=== PATIENT | male | born 1990 | race African-American/Black ===

== ENCOUNTER 2020-01-28 15:00 | Outpatient (CLI) | payer SELFPAY | END 2020-01-28 15:01 | disposition home or self-care (01) | LOC: COV 15:00 | PROVIDERS: ATTEND Family Medicine | DX: J02.9 Acute pharyngitis, unspecified (principal); R09.81 Nasal congestion; Z20.828 Contact with and (suspected) exposure to other viral communicable diseases ==

== ENCOUNTER 2020-05-24 17:50 | Emergency (ER) | payer SELFPAY ==
[2020-05-24] MEDS ORDERED: FAMOTIDINE 20 MG TABLET PO STA (18:09)
[2020-05-24] MEDS ORDERED: diphenhydrAMINE INJ 50 MG/ML VIAL IM STA (18:09)
--- NOTE | 2020-05-24 18:12 | ED Physician Documentation ---
History of Present Illness - Stated complaint Stated Complaint: ALLERGIC REACTION - Chief complaint Chief Complaint: Allergic Rx - Additonal information Additional information: 29-year-old male presents emergency department for evaluation of an allergic reaction. Approximately 90 minutes prior to arrival he began to notice itchiness in his eyes followed by bilateral periorbital eye swelling. He then noticed that his lower lip was beginning to swell. Since then he is developed generalized urticarial rash on his arms and abdomen. He endorses some mild shortness of breath. No chest pain. No difficulty with phonation or swallow. He has no previous history of allergic reactions or allergies with the exception of cats. He has never had similar in the past. Denies any new foods products detergents. He has not taken any medication for this allergic reaction. Review of Systems Constitutional: denies: Fever, Chills Eyes: reports: Reviewed and negative Ears: reports: Reviewed and negative Nose: reports: Reviewed and negative Throat: reports: Dental pain / toothache Cardiac: reports: Chest pain / pressure Respiratory: reports: Dyspnea. denies: Cough, Hemoptysis, Wheezing : reports: Dysuria Skin: reports: Rash PD PAST MEDICAL HISTORY - Past Surgical History Past Surgical History: No - Present Medications Home Medications: Ambulatory Orders Medication Instructions Recorded Confirmed EPINEPHrine [Epinephrine] 0.3 mg IJ ONCE PRN #1 syr 05/24/20 Famotidine [Pepcid] 20 mg PO BID #60 tablet 05/24/20 diphenhydrAMINE [Benadryl] 25 mg PO BID #14 05/24/20 - Allergies Allergies/Adverse Reactions: Allergies Allergy/AdvReac Type Severity Reaction Status Date / Time No Known Drug Allergies Allergy Verified 05/24/20 17:54 - Social History Does the pt smoke?: Yes Smoking Status: Current every day smoker Does the pt drink ETOH?: Yes Does the pt have substance abuse?: Yes PD ED PE EXPANDED - General General: Alert, No acute distress - HEENT HEENT: PERRL, Moist mucous membranes (Mild lower lip swelling. No swelling of the tongue floor of mouth.), Pharynx normal, Other (Mild periorbital eye swelling. No discharge.) - Neck Neck: Supple w/out meningeal sx, Other (Normal swallow normal phonation). No: Adenopathy - Cardiac Cardiac: Regular Rate, Regular Rhythm, Radial strong equal, Pedal strong equal, Cap refill < 2 sec. No: Murmur Present - Respiratory Respiratory: Clear to ausultation altagracia. No: Distress, Labored, Wheezing - Abdomen Abdomen: Normal Bowel sounds. No: Tender to palpation - Back Back: Normal exam, Soft tissue tenderness - Extremities Extremities: Normal. No: Deformity, Tenderness - Neuro Neuro: Alert and Oriented X 3, CNII-XII intact, Cerebellar nl, Normal gait, Normal finger nose, Normal speech - GCS Eye Opening: Spontaneous Motor: Obeys Commands Verbal: Oriented Total: 15 Results - Vitals Vitals: Vital Signs - 24 hr 05/24/20 05/24/20 05/24/20 17:54 18:09 19:05 Temperature 37 C Heart Rate 91 79 66 Respiratory 18 16 16 Rate Blood Pressure 111/58 L 118/65 111/68 O2 Saturation 96 97 99 Oxygen O2 Source Room air PD MEDICAL DECISION MAKING - ED course Complexity details: reviewed results, re-evaluated patient, considered differential, d/w patient ED course: 21-year-old male presented to the emergency department for evaluation of mild periorbital eye swelling lip swelling and urticaria. No history of similar in the past and he is not sure what he may be allergic to denies any new soaps detergents products or foods. He did not have any findings of airway involvement. He had normal phonation no dyspnea or wheeze. Normal saturations. Here in the emergency department he was given Benadryl and Pepcid and after short period of observation had improvement in his urticaria as well as the eye and lip swelling. He was also given 10 mg of Decadron. This gentleman will be discharged with prescription for Pepcid, Benadryl as well as an epinephrine pen. Appropriate use of this device was discussed. I have referred him to the [facility] clinic for follow-up and further evaluation. Emergent and worrisome return precautions for further allergic reactions were discussed. Departure - Departure Disposition: 01 Home, Self Care Clinical Impression: Urticaria Allergic reaction Qualifiers: Encounter type: initial encounter Qualified Code(s): T78.40XA - Allergy, unspecified, initial encounter Condition: Stable Record reviewed to determine appropriate education?: Yes Instructions: ED Allergic Reaction General Other, EpiPen Auto Injector Dc Follow-Up: [facility] [Provider Group] Prescriptions: diphenhydrAMINE [Benadryl] 25 mg PO BID #14 EPINEPHrine [Epinephrine] 0.3 mg IJ ONCE PRN #1 syr PRN Reason: Anaphylaxis Famotidine [Pepcid] 20 mg PO BID #60 tablet Comments: You were seen today for an allergic reaction. As we discussed we are not sure what your allergy is to however you were given Benadryl and Pepcid here in the emergency department with some good improvement in the swelling of your lips and around her eyes. You are also given a one-time dose of an oral steroid called Decadron. It is important to schedule an appointment with a primary care doctor for follow-up. You may benefit from allergy testing in the future. I would like you to fill the prescription for the Benadryl and Pepcid and take twice a day for the next week. I have also written a prescription for an epinephrine pen. This is a medication that you can use should you have any life-threatening swelling. Life-threatening swelling or allergic reaction includes severe shortness of breath tongue or lip swelling which impede your ability to swallow or talk normally.
[2020-05-24] MEDS ORDERED: DEXAMETHASONE 10 MG/ML VIAL PO STA (19:21)
[2020-05-24] MEDS ORDERED: CHERRY SYRUP 10 ML UDC PO ONE (19:21)
[2020-05-24 20:01] VITALS: BP 101/46
== END 2020-05-24 20:02 | disposition home or self-care (01) ==
LOC: ED 17:50
DX: L50.9 Urticaria, unspecified (principal); T78.40XA Allergy, unspecified, initial encounter; F17.200 Nicotine dependence, unspecified, uncomplicated
CPT/HCPCS: 96372; 99283; 99284; A9270; J1200

== ENCOUNTER 2021-02-05 22:11 | Emergency (ER) | payer SELFPAY ==
[2021-02-05 22:17] VITALS: BP 137/76
--- NOTE | 2021-02-05 23:06 | ED Physician Documentation ---
History of Present Illness - Stated complaint Stated Complaint: LUMP ON R LEG - Chief complaint Chief Complaint: Ext Problem - History obtained from History obtained from: Patient - Additonal information Additional information: 30-year-old man, previously healthy presents with right inner thigh Painful swelling for the past 2 to 3 days where he may have an ingrown hair. Denies fever, redness, itchiness, or other symptoms. Review of Systems Constitutional: denies: Fever, Chills Skin: reports: Other (Abscess) PD PAST MEDICAL HISTORY - Past Medical History Past Medical History: No - Past Surgical History Past Surgical History: Yes HEENT: Tonsil/Adenoidectomy - Allergies Allergies/Adverse Reactions: Allergies Allergy/AdvReac Type Severity Reaction Status Date / Time No Known Drug Allergies Allergy Verified 02/05/21 22:14 - Social History Does the pt smoke?: Yes Smoking Status: Current every day smoker Does the pt drink ETOH?: Yes Does the pt have substance abuse?: Yes Substance Use and Type: Marijuana - Immunizations Immunizations are current?: Yes - POLST Patient has POLST: No PD ED PE NORMAL - Vitals Vital signs reviewed: Yes - General General: Alert and oriented X 3, No acute distress, Well developed/nourished - HEENT HEENT: Atraumatic, PERRL, EOMI - Neck Neck: Supple, no meningeal sign - Derm Derm: Normal color, Warm and dry, Other (2 cm abscess to superficial right inner thigh) - Extremities Extremities: Other (2+ bilateral DP pulses. Normal sensation, capillary refill, strength) Results - Vitals Vitals: Vital Signs - 24 hr 02/05/21 22:15 Temperature 36.5 C Heart Rate 74 Respiratory 16 Rate Blood Pressure 137/76 H O2 Saturation 99 Oxygen O2 Source Room air Procedures - Abscess I&D (location) Lower extremity right Preparation: Confirmed with ultrasound, Lidocaine 1%, With epi Incision: Incised with scalpel, Purulent drainage, Irrigated, Culture obtained Other: Pt tolerated well, Dressing applied PD MEDICAL DECISION MAKING - ED course ED course: 30-year-old man presented with right inner thigh abscess which was drained without difficulty. Dressing applied and patient will follow up for wound check. Return precautions given. Departure - Departure Disposition: 01 Home, Self Care Clinical Impression: Abscess Condition: Good Instructions: ED Abscess IandD Comments: You were seen in the emergency department for a right inner thigh abscess that was drained without any issues. We sent a wound culture to the lab but you should not need antibiotics unless the abscess comes back or you have any complications. Please keep the dressing dry for 24 hours and then you can change it daily after that. You should follow-up for wound check in 48 to 72 hours with your primary doctor, walk-in clinic, or urgent care. Return to the emergency department if you have any new or worsening symptoms or other concerns.
== END 2021-02-05 23:14 | disposition home or self-care (01) ==
LOC: ED 22:11
DX: L02.415 Cutaneous abscess of right lower limb (principal); F17.200 Nicotine dependence, unspecified, uncomplicated; Z72.89 Other problems related to lifestyle
CPT/HCPCS: 10060; 87070; 87205